=== PATIENT | female | born 1950 | race Caucasian/White ===

== ENCOUNTER 2023-02-04 14:44 | Outpatient (CLI) | payer MEDICARE, OTHER, SELFPAY ==
--- NOTE | 2023-02-04 15:00 | CRLHL7_ITS ---
For Patients: As a result of the Century Cures Act, medical imaging exams and procedure reports are released immediately into your electronic medical record. You may view this report before your referring provider. If you have questions, please contact your health care provider. INDICATION: Back pain, hardware failure. TECHNIQUE: Noncontrast CT of the lumbar spine with multiplanar reconstruction. COMPARISON: None available. FINDINGS: Operative changes of posterior fusion and decompression from T10 through the sacrum as well as anterior fusion at L5-S1 and L4-S1 interbody disc spacer placement. A fracture is noted in the right [place] at the L3 level (series 11, image 41 and series 5, image 41). 4 mm grade 1 anterolisthesis is noted at L4-L5. There is chronic appearing height loss of the L3 and L5 vertebral bodies and depression of the L1 superior endplate. The peripherally calcified fluid collection is noted within the laminectomy bed extending from T12-L5. Evaluation of the individual levels demonstrates: T12-L1 and L1-L2: No significant spinal canal or neural foraminal stenosis. L2-L3: Patent thecal sac and no significant left neural foraminal stenosis. Mild right neural foraminal narrowing from symmetric disc bulging and facet hypertrophy. L3-L4 and L4-5: Postsurgical changes. Patent thecal sac. No high-grade neural foraminal narrowing. L5-S1: Patient thecal sac and left neural foramen. Moderate right neural foraminal narrowing as sequela of endplate osteophytosis and facet hypertrophy. IMPRESSION: 1. Fracture in the right [place] at the L3 level (series 11, image 41). 2. Operative changes of posterior fusion from T10 through the sacrum, anterior fusion at L5-S1, and L4-S1 interbody disc spacer placement. 3. Age-indeterminate, likely chronic, depression of the L1 superior endplate and height loss of the L3 and L5 vertebral bodies. 4. Peripherally calcified fluid collection within the laminectomy bed extending from T12-L5. 5. At L5-S1, moderate right neural foraminal narrowing. Please note that all CT scans at this facility use dose modulation, iterative reconstruction, and/or weight-based dosing when appropriate to reduce radiation dose to as low as reasonably achievable. Dictated by Jakob Ordonez MD @ 02/05/2023 9:59:21 AM (Electronically Signed)
== END 2023-02-04 14:45 | disposition home or self-care (01) ==
LOC: CT 14:45
PROVIDERS: PCP Surgery; Visit Provider Physician Assistant
DX: M54.9 Dorsalgia, unspecified (principal); S32.039D Unspecified fracture of third lumbar vertebra, subsequent encounter for fracture with routine healing; M51.27 Other intervertebral disc displacement, lumbosacral region; M96.0 Pseudarthrosis after fusion or arthrodesis
CPT/HCPCS: 72131

== ENCOUNTER 2023-09-10 20:12 | Outpatient (CLI) | payer MEDICARE, OTHER, SELFPAY ==
--- OUTSIDE RECORDS SUMMARY | 2023-09-10 20:16 | XMS_ITS | Clinical Summary ---
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 IU/L 07/25/2023 9:21 PM CDT [facility] Blood BLOOD SPECIMEN / Unknown Venipuncture / Unknown 07/25/2023 2:23 PM CDT 07/25/2023 2:25 PM CDT Tana Sherman MD CHEMISTRY Performing Organization Address [facility]/ZIP Co de Phone Number [facility] [address] [place] [address], * (ABNORMAL) COMP METABOLIC PANEL (07/25/2023 2:23 PM CDT) SODIUM 144 136 - 145 mmol/L 07/25/2023 9:21 PM CDT [facility] POTASSIUM 4.9 3.5 - 5.1 mmol/L 07/25/2023 9:21 PM CDT [facility] CHLORIDE 105 98 - 107 mmol/L 07/25/2023 9:21 PM CDT [facility] CO2,TOTAL 29 22 - 29 mmol/L 07/25/2023 9:21 PM CDT [facility] ANION GAP 10 5 - 18 07/25/2023 9:21 PM CDT [facility] GLUCOSE 92 70 - 99 mg/dL 07/25/2023 9:21 PM CDT [facility] CALCIUM 9.9 8.8 - 10.2 mg/dL 07/25/2023 9:21 PM CDT [facility] BUN 12 8 - 23 mg/dL 07/25/2023 9:21 PM CDT [facility] CREATININE 0.79 0.50 - 0.90 mg/dL 07/25/2023 9:21 PM CDT [facility] BUN/CREAT RATIO 15 10 - 20 9:21 PM CDT [facility] eGFR 80(L) >90 mL/min/1.7 3m2 07/25/2023 9:21 PM CDT [facility] Comment:As of 2021, eG FR is calculated by the CKD-EPI creatinine equation without race adjustment. ??eGFR can be influenced by muscle mass, exercise, and diet. ??The reported eGFR is an estimation only and is only applicable if the renal function is stable. ALBUMIN 4.5 4.0 - 4.9 g/dL 07/25/2023 9:21 PM CDT [facility] PROTEIN,TOTAL 7.0 6.0 - 8.0 g/dL 07/25/2023 9:21 PM CDT [facility] BILIRUBIN,TOTAL 0.2 0.0 - 1.2 mg/dL 07/25/2023 9:21 PM CDT [facility] ALK PHOSPHATASE 135(H) 35 - 104 IU/L 07/25/2023 9:21 PM CDT [facility] ALT (SGPT) 16 10 - 35 IU/L 07/25/2023 9:21 PM CDT [facility] AST (SGOT) 19 10 - 35 IU/L 07/25/2023 9:21 PM CDT [facility] Blood BLOOD SPECIMEN / Unknown Venipuncture / Unknown 07/25/2023 2:23 PM CDT 07/25/2023 2:25 PM CDT Tana Sherman MD [facility] [address] [place] [address], * ECHO TTE COMPLETE WO CONTRAST (06/11/2023 3:08 PM NURSE ORTHOPAEDIC) AORTIC VALVE MEAN PG 31 mmHg EJECTION FRACTION 66 % LVEDD 4.3 cm EJECTION FRACTION 70 - 75% PEAK TR VELOCITY 2.6 m/s Anatomical Region Laterality Modality Ultrasound 06/11/2023 1:26 PM NURSE ORTHOPAEDIC Narrative 06/12/2023 8:30 AM NURSE ORTHOPAEDIC ECHOCARDIOGRAM Latia GARCIA ? Accession#: ?? [id number] : ?1950 73 years Study Date: ?? 06/11/2023 1:26:50 PM Gender: F ?BP: ? 150/82 mmHg Height: 165.00 cm ?BSA: ?2.09 m? ? ? Weight: 103.00 kg ?Tech: ? MTS ? Referring MD: TANA SHERMAN Site: ? [facility] Reading Location: MOBILE OP Patient Location: Outpatient. Procedure: 2D, Color Doppler and Spectral Doppler. Indication for study: Aortic valve stenosis, etiology of cardiac valve disease unspecified Cardiac Rhythm: Regular.Study quality: Fair. Imaging limitations: This study was subject to imaging limitations due to body habitus and a prominent lung artifact. Final Impressions: 1. Normal LV size, not well visualized wall thickness (mild to moderately increased), hyperdynamic global systolic function with an estimated EF of 70 - 75%. 2. The aortic valve is sclerotic and not well visualized, moderate stenosis and no regurgitation. 3. Grade 2 pattern of LV diastolic filling. 4. Mildly enlarged left atrium. 5. The mitral valve is normal, mild mitral regurgitation. Comparison Compared to prior exam report of 08/17/2021: - Aortic stenosis has increased. Chamber Sizes and Function Normal left ventricular size, not well visualized wall thickness, hyperdynamic global systolic function with an estimated EF of 70 - 75%. Left atrial size is mildly enlarged. Right ventricular cavity size is normal, global systolic RV function is normal. RV wall thickness is normal. The right atrium is normal. Right atrial volume index is 17 ml/m? ? ?. Right atrial area is 16 cm? ? ?. The pulmonary artery is of normal size and origin. The sinus of Valsalva is normal sized. The ascending aorta is normal sized. Valves, RV Pressures and Diastolic Function The aortic valve is sclerotic and not well visualized , moderate stenosis and no regurgitation. The mitral valve is normal in structure, mild mitral regurgitation. Spectral Doppler shows Grade 2 pattern of LV diastolic filling. The tricuspid valve is normal in structure. Tricuspid regurgitation is regurgitation is not evident. The tricuspid regurgitant velocity is 2.6 m/s, the estimated right ventricular systolic pressure is 27 mmHg plus right atrial pressure. The pulmonic valve is normal. No pulmonary regurgitation. Masses, Effusion, Shunts There is no pericardial effusion. The inferior vena cava is dilated, respiratory size variation less than 50%. No left to right shunting was detected by limited color flow Doppler interrogation of the interatrial septum. MEASUREMENTS AND CALCULATIONS 2-D Measurements and LV Function: LVID (d) 4.3 cm LV FS% (2D) ?? 35 % LVID (s) 2.8 cm LVOT diameter 2.0 cm IVS (d) ??1.3 cm HR ?62 bpm LVPW (d) 1.3 cm LA Vol index ??36 ml/m2 Ao Sinus 3.5 cm RA Vol index ??17 ml/m2 Asc Ao ?? 3.5 cm RA area ? 16 cm?RV Max 4C (d) 3.2 cm Diastology: Mitral ?Tissue Doppler E Peak 0.7 m/s ??e', Septum ? 0.04 m/s A Peak 1.2 m/s ??e', Lateral ?0.06 m/s E/A ?0.6 ?E/e' Average ?? 14.97 DT ? 381 msec Aortic Valve: Vmax ? 3.7 m/s ??BERENICE (V) ?? 1.15 cm? ? ? VTI ?0.86 m ?? BERENICE (I) ?? 1.07 cm? ? ? LVOT V max 1.3 m/s ??Max PG ?54 mmHg LVOT VTI ?? 0.29 m ?? Mean PG ?? 31 mmHg SV ? 92 ml ?Dim Index 0.34 SV index ?? 44 ml/m? ? ? CO ?5.7 l/min ?CI ?2.7 l/min/m? ? ? Mitral Valve: MVA ?2.0 cm? ? ? MV P 1/2 110 msec Tricuspid Valve and estimated PA pressures: TR Vmax 2.6 m/s TAPSE 2.2 cm TR maxG 27 mmHg . This study was interpreted by an [facility] accredited facility. ??Final ?? Procedure Note Landen Sanchez MD - 06/12/2023 ECHOCARDIOGRAM Latia GARCIA : 1950 73 years Study Date: 06/11/2023 1:26:50 PM Gender: F BP: 150/82 mmHg Height: 165.00 cm BSA: 2.09 m? ? ? Weight: 103.00 kg Tech: [facility] Referring MD: TANA SHERMAN Site: [facility] Reading Location: MOBILE OP Patient Location: Outpatient. Procedure: 2D, Color Doppler and Spectral Doppler. Indication for study: Aortic valve stenosis, etiology of cardiac valvedisease unspecified Cardiac Rhythm: Regular.Study quality: Fair. Imaging limitations: This study was subject to imaging limitations due tobody habitus and a prominent lung artifact. Final Impressions: 1. Normal LV size, not well visualized wall thickness (mild to moderatelyincreased), hyperdynamic global systolic function with an estimated EF of70 - 75%. 2. The aortic valve is sclerotic and not well visualized, moderatestenosis and no regurgitation. 3. Grade 2 pattern of LV diastolic filling. 4. Mildly enlarged left atrium. 5. The mitral valve is normal, mild mitral regurgitation. Comparison Compared to prior exam report of 08/17/2021: - Aortic stenosis has increased. Chamber Sizes and Function Normal left ventricular size, not well visualized wall thickness,hyperdynamic global systolic function with an estimated EF of 70 - 75%.Left atrial size is mildly enlarged. Right ventricular cavity size isnormal, global systolic RV function is normal. RV wall thickness isnormal. The right atrium is normal. Right atrial volume index is 17ml/m? ? ?. Right atrial area is 16 cm? ? ?. The pulmonary artery is of normalsize and origin. The sinus of Valsalva is normal sized. The ascendingaorta is normal sized. Valves, RV Pressures and Diastolic Function The aortic valve is sclerotic and not well visualized , moderate stenosisand no regurgitation. The mitral valve is normal in structure, mild mitralregurgitation. Spectral Doppler shows Grade 2 pattern of LV diastolicfilling. The tricuspid valve is normal in structure. Tricuspidregurgitation is regurgitation is not evident. The tricuspid regurgitantvelocity is 2.6 m/s, the estimated right ventricular systolic pressure is27 mmHg plus right atrial pressure. The pulmonic valve is normal. Nopulmonary regurgitation. Masses, Effusion, Shunts There is no pericardial effusion. The inferior vena cava is dilated,respiratory size variation less than 50%. No left to right shunting wasdetected by limited color flow Doppler interrogation of the interatrialseptum. MEASUREMENTS AND CALCULATIONS 2-D Measurements and LV Function: LVID (d) 4.3 cm LV FS% (2D) 35 % LVID (s) 2.8 cm LVOT diameter 2.0 cm IVS (d) 1.3 cm HR 62 bpm LVPW (d) 1.3 cm LA Vol index 36 ml/m2 Ao Sinus 3.5 cm RA Vol index 17 ml/m2 Asc Ao 3.5 cm RA area 16 cm? ? ? RV Max 4C (d) 3.2 cm Diastology: Mitral Tissue Doppler E Peak 0.7 m/s e', Septum 0.04 m/s A Peak 1.2 m/s e', Lateral 0.06 m/s E/A 0.6 E/e' Average 14.97 DT 381 msec Aortic Valve: Vmax 3.7 m/s BERENICE (V) 1.15 cm? ? ? VTI 0.86 m BERENICE (I) 1.07 cm? ? ? LVOT V max 1.3 m/s Max PG 54 mmHg LVOT VTI 0.29 m Mean PG 31 mmHg SV 92 ml Dim Index 0.34 SV index 44 ml/m? ? ? CO 5.7 l/min CI 2.7 l/min/m? ? ? Mitral Valve: MVA 2.0 cm? ? ? MV P 1/2 110 msec Tricuspid Valve and estimated PA pressures: TR Vmax 2.6 m/s TAPSE 2.2 cm TR maxG 27 mmHg . This study was interpreted by an [facility] accredited facility. Final Tana Sherman MD ECHO ORD * (ABNORMAL) XR DXA BONE DENSITY 1 SITE AXIAL AND 1 SITE PERIPHERAL (06/11/2023 2:24 PM NURSE ORTHOPAEDIC) Anatomical Region Laterality Modality LUMBAR SPINE Other Impressions 06/20/2023 9:15 AM CDT Osteopenia. RECOMMENDATIONS: The National Osteoporosis Foundation recommends pharmacologic treatment for patients with T-scores of -2.5 or less, patients with prior history of fragility fractures, or patients with 10-year probability of greater than 3% at hips or greater than 20% of suffering major osteoporotic fractures. Recommend continued optimization of calcium and vitamin D intake through dietary means and/or supplementation and regular exercise. Consider pharmacologic therapy for osteopenia with increased fracture risk. Follow-up bone density reading in 2 years if therapy initiated to assess therapeutic efficacy. Zaida Aiken PA-C [facility] 06/20/2023 Narrative 06/20/2023 9:15 AM CDT For Patients: Results are automatically released to your [employer] ([employer]) account once available, in compliance with federal regulations. This means that you may see your results before your provider has had a chance to review them. Please allow 2-3 business days for your provider to comment on the results. XR DXA Bone Mineral Density (BMD) EXAM LOCATION: [facility] [address] [facility] [address] PATIENT NAME: Latia Garcia DATE OF : 1950 EXAM DATE: 06/11/2023 REQUESTING PROVIDER: Tana Sherman MD GENDER AT : female HEIGHT: 5' 5 (03/18/2023) WEIGHT: ??226 lb (03/25/2023) MENOPAUSAL STATUS: Postmenopausal RACE/ETHNICITY: White RISK FACTORS: Height Loss (2 inches or more), Rheumatoid Arthritis, Smoking (prior), Steroid Medication (non-topical), and White Race CURRENT MEDICATION FOR BONE LOSS: NONE INDICATION: Follow-up of existing osteopenia and RHEUMATOID ARTHRITIS COMPARISON DATE(S): 2019 DXA scans are compared to prior studies for a patient only when the two (or more) studies were performed on the same scanner. It is not possible to compare data generated on one scanner to data from another because there are not standards in DXA equipment. This applies even if the two scanners are made by the same mc kay stitcher. PROCEDURE: Dual-energy x-ray absorptiometry performed with routine technique. Reporting is completed in the form of a T-score. The T-score represents the standard deviation from peak bone mass based on young healthy adult. A Z-score is used for diagnosis in premenopausal women, and for men under the age of 50. FINDINGS: RESULTS FEMUR Left femoral neck BMD: 0.857 g/cm2 T-Score: - 1.3 Z-Score: - 0.3 Change from prior in 2019: ??Decrease 1.9%. Right femoral neck BMD: 0.798 g/cm2 T-Score: - 1.7 Z-Score: - 0.8 Change from prior in 2020: ??Decrease 7.0%. Left hip BMD: 0.883 g/cm2 T-Score: - 1.0 Z-Score: - 0.3 Change from prior in 2020: ??Increase 0.7%. Right hip BMD: 0.831 g/cm2 T-Score: - 1.4 Z-Score: - 0.7 Change from prior in 2020: ??Decrease 4.2%. RESULT FOREARM Left Forearm distal radius BMD: 0.524 g/cm2 T-Score: - 2.5 Z-Score: - 0.6 Change from prior in 2020: ??Increase 0.8%. WHO criteria: Normal: T-score at or above -1 SD Osteopenia: T-score between -1.1 and -2.4 SD Osteoporosis: T-score at or below -2.5 SD FRAX RISK CALCULATION (USED FOR OSTEOPENIA ONLY): 10-year probability of major osteoporotic fracture: 19.8%. 10-year probability of hip fracture: 4.2%. Tana Sherman MD DEXA * XR MAMMO CHARI BILAT SCREEN (01/07/2023 4:12 PM CDT) Anatomical Region Laterality Modality BREASTS, Breast Left, Breast Right Bilateral Mammography Impressions 01/08/2023 2:38 PM CDT ??There is no radiographic evidence for malignancy. ??Recommend annual mammograms. MAMMOGRAM ASSESSMENT: ??ACR 1 Negative PATIENTS: You will also receive a letter with your examination results in an easy to read format. ??If you have questions about your results, please contact your referring provider. Narrative 01/08/2023 2:38 PM CDT For Patients: As a result of the Century Cures Act, medical imaging exams and procedure reports are released immediately into your electronic medical record. You may view this report before your referring provider. If you have questions, please contact your health care provider. XR MAMMO CHARI BILAT SCREEN [[id number]] CLINICAL HISTORY: ??This is an asymptomatic 72 y.o. patient. INDICATION FOR EXAM: Mammogram Screening. TECHNIQUE: CC & MLO views were obtained. ??This study was evaluated with the assistance of Computer-Aided Detection. Breast Tomosynthesis was used in interpretation. COMPARISON FILM: Yes 08/17/21 [facility] 02/11/20 [facility] FINDINGS: ??The breasts are heterogeneously dense, which may obscure small masses. There are no dominant masses, suspicious micro calcifications or areas of architectural distortion. Tana Sherman MD MAMMO * LIPID PANEL (01/02/2023 12:52 PM CDT) CHOLESTEROL,TOTAL 165 100 - 199 mg/dL 01/02/2023 8:36 PM CDT [facility] Comment: Cholesterol, Total Reference Ranges Desirable <200 mg/dL Borderline 200-239 mg/dL High >=240 mg/dL TRIGLYCERIDES 71 <150 mg/dL 01/02/2023 8:36 PM CDT [facility] HDL CHOLESTEROL 91 >40 mg/dL 8:36 PM CDT [facility] NON-HDL CHOLESTEROL 74 <145 mg/dl 01/02/2023 8:36 PM CDT [facility] CHOL/HDL RATIO 1.81 <4.50 01/02/2023 8:36 PM CDT [facility] LDL CHOLESTEROL 60 <=130 mg/dL 01/02/2023 8:36 PM CDT [facility] VLDL CHOLESTEROL 14 <=30 mg/dL 01/02/2023 8:36 PM CDT [facility] PROVIDER ORDERED STATUS RANDOM 01/02/2023 8:36 PM CDT [facility] Blood BLOOD SPECIMEN / Unknown Venipuncture / Unknown 01/02/2023 12:52 PM CDT 01/02/2023 12:52 PM CDT Tana Sherman MD CHEMISTRY [facility] [address] [place] [address], * SCAN-COLONOSCOPY (12/11/2021 3:00 PM CDT) Narrative Procedure Note Ran Lee MD - 12/11/2021 1:56 PM CDT [facility] [address], [address], [place] [address] Patient Name: Julia Garcia Gender: Female Exam Date: 12/11/2021 Visit Number: [id number] Age: 71 Years Date of : 1950 Attending MD: Ran Lee MD Medical Record#: [id number] Procedure: Colonoscopy Indications: Previous adenomatous polyp(s) Referring MD: Tana Sherman MD Primary MD: Tana Sherman MD Medications: Intra Procedure Medications: Patient received monitored anesthesia care. Complications: No immediate complications Procedure: An examination of the heart and lungs was performed and found to be withinacceptable limits. . The patient was therefore deemed a reasonablecandidate for endoscopy and sedation. The risks and benefits of the procedure were explained to the patient.After obtaining informed consent, the patient received monitoredanesthesia care and I passed the scope without difficulty via the rectum to the cecum. The appendiceal orificeand ic valve were identified. The scope was retroflexed during theexamination The quality of the prep was good (Miralax/Gatorade DoublePrep). This was a complete examination throughout the entire colon. Findings: Polyp location: transverse colon. Quantity: 1. Size: 4 mm. Polyp shape:sessile. Maneuver: polypectomy was performed with a cold snare. Removal: complete. Retrieval: complete. Bleeding: none. Polyp location: sigmoid. Quantity: 1. Size: 5 mm. Polyp shape: sessile. Maneuver: polypectomy was performed with a cold snare . Removal: complete. Retrieval: complete. Bleeding: none. Diverticulosis. Location: - sigmoid. Quantity: few. Hemorrhoids. Internal hemorrhoids without bleeding. Perianal skin tag noted on external exam. Impression: Colorectal polyps Diverticulosis of colon Internal hemorrhoids Preliminary Plan: The patient and their physician will receive a copy of the pathologyreport as well as pathology-based recommendations for future screening orsurveillance. Pathology Results: A: COLON, TRANSVERSE, POLYP: 1. Tubular adenoma 2. Negative for high grade dysplasia 3. Per the colonoscopy report: a. Polyp size: 4 mm b. Resection: Complete c. Retrieval: Complete B: COLON, SIGMOID, POLYP: 1. Hyperplastic polyp MICROSCOPIC A: Performed B: Performed Electronically signed by: Bj Leigh [place] [address] Orders Instruction(s)/Education: Instruction/Education Timeframe Assessment Colon Cancer Prevention K63.5 Colon Polyps K63.5 Diverticulosis/Diverticulitis K63.5 Hemorrhoids (Internal) K63.5 High Fiber Diet K63.5 Final Plan: Repeat colonoscopy in 7 years. We will attempt to contact you at appropriate intervals via U.S. mail. Wemay not be able to find you or contact you at that time, therefore youshould know that the responsibility for following our recommendation restswith you. If you don't hear from us at the time your procedure is due,please contact our office to schedule an appointment. If your contactinformation should change, please contact our office so that we can updateyour record. _Electronically signed by: Ranulfo Mesa MD 12/11/2021 cc: Tana Sherman MD cc: Tana Sherman MD Ran Lee MD OTHER * ANTI HCV [[id number]] (01/18/2020 4:04 PM CDT) HEPATITIS C ANTIBODY Non-React jarrett Non-React jarrett 01/19/2020 3:18 PM CDT [facility] Comment:Antibodies to HCV no t detected; does not exclude the possibility of exposure to HCV. Blood BLOOD SPECIMEN / Unknown Butterfly / Unknown 01/18/2020 4:04 PM CDT 01/18/2020 4:04 PM CDT Tana Sherman MD SEND OUTS [facility] [address] [place] [address], [place] from Last 3 Months or Most Recently Relevant to Health Maintenance Advance Directives Documents on File Type Date Recorded Patient Emergency Communications Dispatcher Expl anation Healthcare Directive 08/11/2016 12:00 AM * Full Code (Latest Code Status on File) Date Activated Date Inactivated Comments 03/18/2023 3:16 PM 03/20/2023 6:06 PM Question Answer Comments Code Status Discussion: Reviewed Preferences * Full Code Date Activated Date Inactivated Comments 08/13/2016 4:08 PM 08/19/2016 4:57 PM * Full Code Date Activated Date Inactivated Comments 08/13/2016 5:27 AM 08/13/2016 4:08 PM Question Answer Comments Code Status Discussion: Discussed Care Teams Customer Support Consultant Relationship Specialty Start Date End Date Tana Sherman MD [address] [place] [address] PCP - General Family Practice 08/04/13 Shannan Guadalupe MD [address] [place] [address] Rheumatology Rheumatology 11/27/17
--- OUTSIDE RECORDS SUMMARY | 2023-09-10 20:16 | XMS_ITS | Continuity of Care Document ---
Author Name [facility] Organization [facility] Care Team Providers Care Dog Catcher Name Role Phone [facility] Unavailable Unavailable Problems Combined list of problems from Department of Defense and Veterans Affairs facilities. It does not include entries that were removed or entered in error. 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 DoD Aftercare Orthopedic Inactive Condition DoD visit for: administrative purpose Inactive Condition DoD visit for: preoperative orthopedic exam Inactive Condition DoD decrease in appetite Active Condition D oD abnormal weight loss Active Condition D oD pain on swallowing Active Condition DoD difficulty walking Active Condition DoD nausea Inactive Condition DoD Dietary Counseling Pertaining To Specific Condition Inactive Condition DoD diastolic dysfunction Active Condition DoD Other Physical Therapy Inactive Condition DoD difficulty in walking Inactive Condition DoD spinal stenosis lumbar with neurogenic claudication Active Condition DoD scoliosis Active Condition DoD visit for: preoperative exam Inactive Condition 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 DoD Patient Education Inactive Condition DoD breast fibrocystic disease Active Condition DoD Cervical Pap Smear Inactive Condition Do D bacterial vaginosis Inactive Condition D oD chest pain made worse by breathing Inactive Condition DoD lumbago Active Condition DoD menopause has occurred Active Condition DoD visit for: screening exam osteoporosis Inactive Condition DoD Aftercare Following Surgery Of Musculoskeletal System Inactive Condition DoD CT Lung Infiltrate Inactive Condition Do D visit for: screening exam malignant neoplasm breast Inactive Condition DoD visit for: screening exam for malignant neoplasm cervix Inactive Condition DoD visit for: screening exam lipoid disorders Inactive Condition DoD visit for: screening exam diabetes mellitus Inactive Condition DoD visit for: screening exam thyroid disorders Inactive Condition DoD difficulty breathing (dyspnea) Inactive Condition DoD visit for: postsurgical exam Inactive Condition DoD nicotine dependence Inactive Condition D oD bronchopneumonia Inactive Condition DoD community-acquired pneumonia Inactive Condition DoD visit for: issue repeat prescription Inactive Condition DoD ovarian cyst Active Condition DoD visit for: issue repeat prescription for medication Inactive Condition DoD depression Active Condition DoD insomnia Active Condition DoD fibromyalgia Active Condition DoD intervertebral disc degeneration - lumbar Active Condition DoD adrenal neoplasm benign cortical adenoma incidental Inactive Condition DoD post pneumonia Inactive Condition DoD adrenal neoplasm Active Condition DoD hemorrhoids Inactive Condition DoD perimenopause Inactive Condition DoD gastritis Inactive Condition DoD dermatochalasis Inactive Condition DoD chronic pain syndrome Active Condition DoD lumbar spondylosis Active Condition DoD hemorrhoids internal Active Condition D oD breast pain Active Condition DoD backache Inactive Condition DoD rheumatoid arthritis Active Condition D oD tobacco use Inactive Condition DoD myalgia and myositis Active Condition D oD asthma severe persistent Active Condition DoD pneumonia Inactive Condition DoD recent weight gain (___ lbs) [reported] Inactive Condition DoD constipation Inactive Condition DoD appetite lost (anorexia) Inactive Condition DoD Patient Education Dietary Inactive Condition DoD seborrheic keratosis Inactive Condition left labia and right thigh DoD adverse effect of drug therapy Inactive Condition DoD dysplastic nevus Inactive Condition DoD asthma Inactive Condition DoD Mammogram Screening Inactive Condition D oD Pelvic Exam (Internal) Inactive Condition DoD bronchitis Inactive Condition CONTINUE INHALERS. WILL TREAT EMPIRICALLY WITH LEVAQUIN GIVEN HER COMPLICATED PULMONARY HISTORY QUESTIONABLE COPD. RTC IF NO BETTER IN 48HOURS. DoD hypertension systemic Inactive Condition DoD Patient Counseling: Inactive Condition D oD essential hypertension Active Condition pt. amenable to restarting altace and giiving it a longer trial. she tolerated this med the best. she does not want to start any other bp medication. will follow up in one month. sooner if any se or problems. DoD Imaging Studies Nonspecific Abnormal Findings Breast Inactive Condition DoD visit for: screening malignant neoplasm colon Inactive Condition DoD routine gynecological exam with cervical pap smear Inactive Condition DoD palpitations Inactive Condition DoD Medications Combined list of outpatient medications from Department of Defense and Veterans Affairs facilities.Medications provided include 1) outpatient medications from the last 15 months, and 2) patient-reported medications. Medication Details Route Status Patient Instructions Prescription Expires Prescription Number Last Dispense Date Ordering Provider Order Date Order Qty Source AMLODIPINE BESYLATE (AMLODIPINE BESYLATE), 5 MG, TABLET, ORAL, EXELAN PHARMACE, 1000 ea. BOTTLE Active [id number] 2023 90 Pharmac y Data Transac tion Service Facilit y AMLODIPINE BESYLATE (AMLODIPINE BESYLATE), 5 MG, TABLET, ORAL, EXELAN PHARMACE, 1000 ea. BOTTLE Active [id number] 4 2023 90 Pharmac y Data Transac tion Service Facilit y ATORVASTATI N CALCIUM (ATORVASTAT IN CALCIUM), 20 MG, TABLET, ORAL, ID.me ZOE, 1000 ea. BOTTLE Active [id number] 3 2022 90 Pharmac y Data Transac tion Service Facilit y ATORVASTATI N CALCIUM (ATORVASTAT IN CALCIUM), 20 MG, TABLET, ORAL, APOTEX ZOE, 1000 ea. BOTTLE Active [id number] 2023 90 Pharmac y Data Transac tion Service Facilit y ATORVASTATI N CALCIUM (atorvastat in calcium), 20 MG, TABLET, ORAL, AMANDA PHARMACEU, 500 ea. BOTTLE Active [id number] 2023 90 Pharmac y Data Transac tion Service Facilit y CARVEDILOL (carvedilol ), 3.125 MG, TABLET, ORAL, [employer] 500 ea. BOTTLE Active [id number] 2023 180 Pharmac y Data Transac tion Service Facilit y CARVEDILOL (carvedilol ), 3.125 MG, TABLET, ORAL, [employer] 500 ea. BOTTLE Active [id number] 4 2023 180 Pharmac y Data Transac tion Service Facilit y ESCITALOPRA M OXALATE (escitalopr am oxalate), 20 MG, TABLET, ORAL, [facility], 1000 ea. BOTTLE Active [id number] 2023 90 Pharmac y Data Transac tion Service Facilit y ESCITALOPRA M OXALATE (ESCITALOPR AM OXALATE), 20 MG, TABLET, ORAL, [facility] PHARM[facility], 1000 ea. BOTTLE Active [id number] 3 2022 90 Pharmac y Data Transac tion Service Facilit y FOLIC ACID (folic acid), 1 MG, TABLET, ORAL, [employer], 1800 ea. BOTTLE Active [id number] 2022 90 Pharmac y Data Transac tion Service Facilit y FOLIC ACID (folic acid), 1 MG, TABLET, ORAL, [employer], 1800 ea. BOTTLE Active [id number] 4 2023 90 Pharmac y Data Transac tion Service Facilit y FOLIC ACID (folic acid), 1 MG, TABLET, ORAL, [employer], 1800 ea. BOTTLE Active [id number] 4 2023 90 Pharmac y Data Transac tion Service Facilit y METHOTREXAT E (METHOTREXA TE SODIUM), 25MG/ML, VIAL, INJECTION, RONNIE PHARMA IN, 2 ml VIAL Cancele d [id number] : 2023 0 Pharmac y Data Transac tion Service Facilit y METHOTREXAT E (METHOTREXA TE SODIUM), 25MG/ML, VIAL, INJECTION, RONNIE PHARMA IN, 2 ml VIAL Active [id number] 4 2023 12 Pharmac y Data Transac tion Service Facilit y MODAFINIL (MODAFINIL) , 200 MG, TABLET, ORAL, APOTEX ZOE, 30 ea. BOTTLE Active [id number] 4 2023 180 Pharmac y Data Transac tion Service Facilit y MONTELUKAST SODIUM (montelukas t sodium), 10 MG, TABLET, ORAL, XLCARE PHARMACE, 90 ea. BOTTLE Active [id number] 2022 90 Pharmac y Data Transac tion Service Facilit y MONTELUKAST SODIUM (montelukas t sodium), 10 MG, TABLET, ORAL, XLCARE PHARMACE, 90 ea. BOTTLE Active [id number] 4 2023 90 Pharmac y Data Transac tion Service Facilit y PREDNISONE (prednisone ), 5 MG, TABLET, ORAL, AVKARE, 1000 ea. BOTTLE Active [id number] 2023 50 Pharmac y Data Transac tion Service Facilit y TELMISARTAN (telmisarta n), 80 MG, TABLET, ORAL, AVKARE, 30 ea. BOTTLE Cancele d [id number] : 2023 0 Pharmac y Data Transac tion Service Facilit y TELMISARTAN (telmisarta n), 80 MG, TABLET, ORAL, AVKARE, 30 ea. BOTTLE Active [id number] 2023 90 Pharmac y Data Transac tion Service Facilit y TELMISARTAN (telmisarta n), 80 MG, TABLET, ORAL, AVKARE, 30 ea. BOTTLE Active [id number] 2023 90 Pharmac y Data Transac tion Service Facilit y WIXELA INHUB (fluticason e propionate/ salmeterol xinafoate), 500-50 MCG, BLST W/DEV, INHALATION, MYLAN, 60 ea. BLIST PACK Cancele d [id number] : 2023 0 Pharmac y Data Transac tion Service Facilit y WIXELA INHUB (fluticason e propionate/ salmeterol xinafoate), 500-50 MCG, BLST W/DEV, INHALATION, MYLAN, 60 ea. BLIST PACK Active [id number] 2023 180 Pharmac y Data Transac tion Service Facilit y Allergies, Adverse Reactions, Alerts Combined list of allergies from Department of Defense and Veterans Affairs facilities. It does not include entries that were removed or entered in error. Substance Category Reaction Severity Reaction type Status Date Reported Comments Source ACTIQ (FENTANYL CITRATE) Drug allergy (disorder) Unknown active 2 [facility] FENTANYL BASE (FENTANYL) Drug allergy (disorder) Unknown active 9 [facility] Immunizations Combined list of available immunizations from the Department of Defense and Veterans Affairs facilities. Immunization Series Date Given Administered By Site Reaction Lot Number CVX Code Drug Cosmetics Demonstrator Status Comments Source trivalent poliovirus vaccine, live, oral 1 1972 Unknown, Provider 02 () complet ed trivalent polioviru s vaccine, live, oral DoD measles, mumps and rubella virus vaccine 1 1952 Unknown, Provider 03 () complet ed measles, mumps and rubella virus vaccine DoD Encounters Combined list of: 1) Encounters from Department of Veterans Affairs facilities going back up to thelast 18 months. 2) Encounters from the Department of Defense facilities going back up to 280 months. Location Location Details Encounter Type Encounter Number Reason For Visit Attending Provider ADM Date DC Date Status Disposition Source [facility] DIRECT TO [facility] FROM OTHER THAN ER OR [facility] [id number] DELMAR MAXWELL 07/07 DISCHARGED HOME [facility] ADMISSION RESULTING FROM [facility], DIRECT TO [facility] [id number] DIONNA DAWN Bianka 08/10 DISCHARGED HOME [facility] OUTPATIENT [id number] JACI Rolon 12/25 Released w/o Limitations [facility]) OUTPATIENT [id number] annual exam JULIANA, NICHOLE E 05/25 Released w/o Limitations [facility]) [facility]) OUTPATIENT [id number] Cecili ROBERTA Vogel 06/21 Released w/o Limitations [facility] ) [facility]) TELE CONSULT [id number] f/u mammo JULIANA, NICHOLE E 08/01 [facility]) [facility]) TELE CONSULT [id number] notific ation JULIANA, NICHOLE E 08/15 [facility]) [facility]) TELE CONSULT [id number] Having nausea, vomitin g, chest pain, shortne ss of breath. VINICIO SPAIN 08/20 [facility]) [facility]) OUTPATIENT [id number] 54 yo female needs f/u for high blood pressur e med VINICIO SPAIN 08/29 Released w/o Limitations [facility]) [facility]) TELE CONSULT [id number] Pt wants to discuss treatme nt plan for BP issues DEMIAN CORONA 11/13 [facility]) [facility]) OUTPATIENT [id number] F/U er/high bp VINICIO SPAIN A 11/19 Released w/o Limitations [facility]) [facility]) OUTPATIENT [id number] ANNUAL PAP AND BREAST EXAM MEAGHAN VELEZ 12/13 Released w/o Limitations [facility]) [facility] OUTPATIENT [id number] KIRSTY RAMIRES 01/16 Released w/o Limitations [facility] ER, [facility] TO [facility] [id number] KELI PELAEZ 07/15 LEFT AGAINST MEDICAL ADVICE [facility]) TELE CONSULT [id number] [facility] TAMIA Dyson 07/16 Referred for Appointment [facility](Int ernal Medicin e [facility]) [facility] [id number] HUMPHREY TURNER 07/22 DISCHARGED HOME [facility]riti on [facility]) OUTPATIENT [id number] ROSLYN ORTEGA 07/23 Released w/o Limitations [facility](Nut rition [facility]) [facility]) OUTPATIENT [id number] F/U ON A PNEUMON IA MEAGHAN VELEZ 07/28 Released w/o Limitations [facility]) [facility]) TELE CONSULT [id number] consult JONELLE CINTRON 08/02 [facility]) [facility] OUTPATIENT [id number] PAP/maira ast exam. MEAGHAN VELEZ 08/10 Released w/o Limitations [facility]) [facility]) OUTPATIENT [id number] Mammogr am Screeni ng on August 12 CRISTOPHER VILLAFANA 08/24 Released w/o Limitations [facility] ) [facility](Neurosu rgery [place]) OUTPATIENT [id number] backach e-f/u after MRI DIONNA DAWN 08/27 Released with Work/Duty Limitations [facility]) [facility](Plastic Surgery [facility]) OUTPATIENT [id number] GAYE Carlton UPPER EYELID HERON HEREDIA 11/26 Released w/o Limitations [facility](Emma stic Surgery [facility]) [facility]) OUTPATIENT [id number] meds renewal --- MEAGHAN VELEZ 12/21 Released w/o Limitations [facility]) [facility]) TELE CONSULT [id number] referra JONELLE Lazar Y 08/11 [facility]) [facility]) TELE CONSULT [id number] referJONELLE Lim Y 11/14 [facility]) [facility]) OUTPATIENT [id number] NAUSEA AND FEVER MEAGHAN VELEZ 11/16 Released w/o Limitations [facility]) [facility]) OUTPATIENT [id number] refill asthma meds MEAGHAN VELEZ 11/30 Released w/o Limitations [facility]) [facility]) TELE CONSULT [id number] rad results JONELLE CINTRON Y 12/07 [facility]) [facility]) TELE CONSULT [id number] lab results JONELLE CINTRON Y 12/14 [facility](Endocri nology [facility]) OUTPATIENT [id number] adrenal adenoma uncontr olled htn BRENDA TAMAYO 12/15 Released w/o Limitations [facility](End ocrinol ogy [facility]) [facility](Pulmona ry [facility]) OUTPATIENT [id number] f/u pt of ROB Crawford 12/16 Released w/o Limitations [facility](Pul monary [facility]) [facility]) TELE CONSULT [id number] shortne ss of breath JONELLE CINTRON Y 12/28 [facility]) [facility](Pulmona ry [facility]) TELE CONSULT [id number] pneuomi ROB Sanders 01/04 [facility](Pul monary [facility]) [facility](Pulmona ry [facility]) OUTPATIENT [id number] f/u ROB ALFORD 01/13 Released w/o Limitations [facility](Pul monary [facility]) [facility](Endocri nology [facility]) TELE CONSULT [id number] LABS BRENDA TAMAYO 01/13 [facility](End ocrinol ogy [facility]) [facility]) TELE CONSULT [id number] rad results JONELLE CINTRON Y 01/18 [facility]) [facility](Pulmona ry [facility]) TELE CONSULT [id number] X-Ray CD ROB ALFORD 01/24 [facility](Pul monary [facility]) [facility](Endocri nology [facility]) OUTPATIENT [id number] Pt inpers F/u Jan BRENDA TAMAYO 01/24 Released w/o Limitations [facility](End ocrinol ogy [facility]) [facility](Endocri nology [facility]) TELE CONSULT [id number] test results BRENDA TAMAYO 02/22 [facility](End ocrinol ogy [facility]) [facility](Endocri nology [facility]) TELE CONSULT [id number] lab results BRENDA TAMAYO 02/27 [facility](End ocrinol ogy [facility]) [facility](Endocri nology [facility]) TELE CONSULT [id number] BRENDA TAMAYO 03/08 [facility](End ocrinol ogy [facility]) [facility] [employer]) TELE CONSULT [id number] REFERAL BA JANSEN 03/15 [facility] [employer]) [facility] [employer]) OUTPATIENT [id number] initial appt ANTONIO BRONSON 03/20 Released w/o Limitations [facility] [employer]) [facility](Endocri nology [facility]) TELE CONSULT [id number] lab resutls BRENDA TAMAYO 03/28 [facility](End ocrinol ogy [facility]) [facility] [employer]) OUTPATIENT [id number] f/u PEDRO CRESPO 04/06 Released w/o Limitations [facility] [employer]) [facility](Pulmona ry [facility]) OUTPATIENT [id number] PFT wally dlco ROB ALFORD 04/10 Released w/o Limitations [facility](Pul monary [facility]) [facility] [employer]) OUTPATIENT [id number] f/u PEDRO CRESPO 05/02 Released w/o Limitations [facility] [employer]) [facility] [employer]) OUTPATIENT [id number] F/U ON FIBROMY KENAN PEDRO CRESPO 05/31 Released w/o Limitations [facility] [employer]) [facility] [employer]) TELE CONSULT [id number] Referra US cas & Refills PEDRO CRESPO 07/05 [facility] [employer]) [facility] [employer]) TELE CONSULT [id number] [facility] refusal SUHAS GALVIN 08/15 [facility] [employer]) [facility](Endocri nology [facility]) TELE CONSULT [id number] ct results BRENDA TAMAYO 08/25 [facility](End ocrinol ogy [facility]) [facility] [employer]) TELE CONSULT [id number] med refill SUHAS GALVIN 08/31 [facility] [employer]) [facility] [employer]) TELE CONSULT [id number] appt. SUHAS GALVIN 09/05 [facility] [employer]) [facility] [employer]) OUTPATIENT [id number] f/u depress RAFAEL Mcbride 09/12 Released w/o Limitations [facility] [employer]) [facility] [employer]) TELE CONSULT [id number] wants xray results from yesturd ay [id number] pw RAFAEL GASCA 09/13 [facility] [employer]) [facility] [employer]) TELE CONSULT [id number] CXR, labs RAFAEL GASCA 09/14 [facility] [employer]) [facility] [employer]) TELE CONSULT [id number] meds/ra d/appt SUHAS GALVIN 10/02 [facility] [employer]) [facility](Pulmona ry [facility]) OUTPATIENT [id number] Chronic asthma MARIO GRIMM 10/13 Released w/o Limitations [facility](Pul monary [facility]) [facility](Endocri nology [facility]) TELE CONSULT [id number] BRENDA TAMAYO 11/08 [facility](End ocrinol ogy [facility]) [facility] [employer]) TELE CONSULT [id number] referra BA Murdock 12/25 [facility] [employer]) [facility] [employer]) OUTPATIENT [id number] initial appt RAFAEL GASCA 01/02 Released w/o Limitations [facility] [employer]) [facility](Pulmona ry [facility]) TELE CONSULT [id number] medicat ion refill MARIO GRIMM 01/22 [facility](Pul monary [facility]) [facility] [employer]) OUTPATIENT [id number] f/u blood pressur e RAFAEL GASCA 01/30 Released w/o Limitations [facility] [employer]) [facility]) TELE CONSULT [id number] CXR, RAFAEL Baker 01/31 [facility] [employer]) [facility]) TELE CONSULT [id number] CXR RAFAEL GASCA 02/23 [facility] [employer]) [facility]) TELE CONSULT [id number] RAFAEL Baker 03/05 [facility] [employer]) [facility](Neurosu [facility]gery [facility]) OUTPATIENT [id number] CHRONIC PAIN SYNDROM E; 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 Monique pt. Please call to discuss surg date. KIMBERLI TRAORE 09/10 [facility]([place]) [facility](Neurosu rgery [facility]) TELE CONSULT [id number] Pt desires to resched ule surgery appt. due to asthma attack prefera ashok [id number] TAYLER REGULO L 09/24 [facility]([place]) [facility](Neurosu [facility]gery [facility]) TELE CONSULT [id number] PT. wants to speak to you about resched uling her surgery . KIMBERLI TRAORE 10/22 [facility]([place] [facility]) [facility](Neurosu rgery [facility]) TELE CONSULT [id number] Preop appt. KIMBERLI TRAORE 11/07 [facility]([place] [facility] (Neurosu [facility]gery [facility]) OUTPATIENT [id number] Pre-op for Dec surgery DIONNA DAWN Bianka 12/18 Released with Work/Duty Limitations [facility]([place] [facility]) [facility] [place] [facility](Neurosu [facility]gery [facility]) TELE CONSULT [id number] Dr. Dasia delcid SCS placeme nt 12/26. Wound care/pa in mgt questio ns. DAVID TRAOREJG Suresh 12/27 [facility]([place] [facility] [place] (Neurosu [facility]gery [facility]) OUTPATIENT [id number] Postop wound check DIONNA DAWN 01/08 Released with Work/Duty Limitations [facility]([place] [facility]) [facility] [place] (Pulmona ry [facility]) OUTPATIENT [id number] f/u MARIO GRIMM 01/11 Released w/o Limitations [facility](Pul monary [facility]) [facility] [place] (Neurosu [facility]gery [facility]) TELE CONSULT [id number] Dr.P. delcid Thoraci c SNS 12/26, c/o stabbin g pain on left side of spine x 5 days. DAVID TRAOREJG Suresh 01/22 [facility] [place] (Pulmona ry [facility]) TELE CONSULT [id number] please call VANESSA CRESPO 01/24 [facility]) [facility] [facility] [place] (Neurosu rgery [facility]) TELE CONSULT [id number] missed appt. DAVID TRAOREJG Suresh 01/25 [facility]([place] rosurge ry [facility]CP) [facility] [place]Endocri nology [facility]) OUTPATIENT [id number] BRENDA Fenton 02/04 Released w/o Limitations [facility](End ocrinol ogy NMCP) [facility] [employer]) OUTPATIENT [id number] F/U ER LAB RESULTS FOR PNEUMON IA LAST SEEN 01 25 11 YELENA FONTANEZ E 02/05 Released w/o Limitations [facility] [employer]) [facility](Endocri nology NMCP) TELE CONSULT [id number] questio ns about nelson TAMAYO BRENDA Sully 02/18 [facility](End ocrinol ogy NMCP) [facility](Pulmona ry NMCP) OUTPATIENT [id number] full study post bronch SIRISHA MARIO M 02/18 Released w/o Limitations [facility](Pul monary NMCP) [facility](Pulmona ry NMCP) OUTPATIENT [id number] f/u MARIO GRIMM 02/18 Released w/o Limitations [facility](Pul monary NMCP) [facility](Neurosu rgery NMCP) OUTPATIENT [id number] f/u appoint ment DIONNA DAWN 04/25 Released w/o Limitations [facility]([place] rosurge ry [facility]CP) [facility](Endocri nology NMCP) OUTPATIENT [id number] CHRONIC PAIN SYNDROM E STEPHANE BIGGS 05/07 Released w/o Limitations [facility](End ocrinol ogy NMCP) [facility](Neurosu rgery NMCP) OUTPATIENT [id number] pt/2nd opinion (R/S from 06/04) CELESTINA DOWLING 06/03 Released w/o Limitations [facility]([place] rosurge ry [facility]) [facility] [employer]) OUTPATIENT [id number] F\U FOR CHEST PAIN DATE LAST SEEN YELENA FONTANEZ E 06/12 Released w/o Limitations [facility] [employer]) [facility] [employer]) TELE CONSULT [id number] Notes Entered by: RALPH CHAVEZ 23 Jul 2011 1007 ------- ------- ------- ------- -- hilario cardozo CATHY RADFORDTE 07/22 [facility] [employer]) [facility](Neurosu rgery NMCP) TELE CONSULT [id number] Notes Entered by: Latia GALVIN 05 Aug 2011 1224 ------- ------- ------- ------- -- PT wants to sched e surgery REGULO LESTER 08/04 [facility]([place] rosurge ry [place]) [facility](Neurosu rgery NMCP) TELE CONSULT [id number] Notes Entered by: BRITTANY MORALES 23 Aug 2011 1151 ------- ------- ------- ------- -- Dr. Dowling pt stated she called last Fri left mess w/ koffi SLAUGHTERES REGULO Kieran 08/22 [facility]([place] rosurge ry [facility]) [facility] [employer]) OUTPATIENT [id number] visit for: screeni ng exam for maligna nt neoplas m cervix RAJNI BERGERON 09/02 Released w/o Limitations [facility] [employer]) [facility](Neurosu rgery [facility]CP) OUTPATIENT [id number] F/U CELESTINA DOWLING 09/03 Released w/o Limitations [facility]([place] rosurge ry NMCP) [facility]([place] [employer]) OUTPATIENT [id number] vular biopsy RAJNI BERGERON 09/05 Released w/o Limitations [facility] [employer]) [facility]([place] [facility]) TELE CONSULT [id number] Notes Entered by: RAJNI DARBY 12 Sep 2011 1609 ------- ------- ------- ------- -- Called with vulvar bx results -benign . Area healing well. RAJNI Patterson 09/11 [facility] [employer]) [facility](Ortho Spine NMCP) OUTPATIENT [id number] LUMBAR SPONDYL OSIS BURTON SANABRIA 09/18 Released w/o Limitations [facility](Ort ho Spine NMCP) [facility]([place] [employer]) TELE CONSULT [id number] Notes Entered by: Kerwin PATEL 27 Sep 2011 0825 ------- ------- ------- ------- -- Pap results ROSLYN PATEL 09/26 [facility] [employer]) [facility] Internal Med NMCP) OUTPATIENT [id number] Myrtle jones ce for spine surgery PEDRO CURRY 11/24 Released w/o Limitations [facility] Interna l Med NMCP) [facility](Ortho Spine NMCP) TELE CONSULT [id number] Notes Entered by: NIEVES PARTIDA 25 Nov 2011 1123 ------- ------- ------- ------- -- Initial contact NIEVES PARTIDA 11/24 [facility](Ort ho Spine NMCP) [facility](Ortho Spine NMCP) OUTPATIENT [id number] PRE-OP/ DOS-04S EP/OR4 BURTON SANABRIA 12/03 Released w/o Limitations [facility](Ort ho Spine NMCP) [facility] ADMISSION RESULTING FROM [facility], DIRECT TO [facility] [id number] BURTON SANABRIA 12/09 DISCHARGED TO [facility](Nutriti on NMCP) INPATIENT [id number] Notes Entered by: NEHAL SCHAFFER 11 Dec 2011 1434 ------- ------- ------- ------- -- 3D - Scolios is/Spin al Fusion/ Nausea CRISTELA GRAYSON 12/10 Inpatient- Still a Patient [facility](Nut [facility]ition [facility]) [facility](Cardiol ogy NMCP) INPATIENT [id number] Notes Entered by: Latia MORALES 12 Dec 2011 1022 ------- ------- ------- ------- -- Echo CELESTINA BRADSHAW 12/11 Inpatient- Still a Patient [facility](Car diology NMCP) [facility](Business Support Inpatient Team) INPATIENT [id number] Notes Entered by: MELVI MENDOZA 12 Dec 2011 1341 ------- ------- ------- ------- -- s/p spinal fusion MELVI MENDOZA 12/11 [facility](Business Support Inpatient Team) INPATIENT [id number] ELISA WAGNER 12/12 Inpatient- Still a Patient [facility](Phy s Ther Inpatie nt Team) [facility](Business Support Inpatient Team) INPATIENT [id number] ELISA WAGNER 12/12 Inpatient- Still a Patient [facility](Phy s Ther Inpatie nt Team) [facility](Business Support Inpatient Team) INPATIENT [id number] ELISA WAGNER 12/15 Inpatient- Still a Patient [facility](Phy s Ther Inpatie nt Team) [facility](Business Support Inpatient Team) INPATIENT [id number] KALIE ALEXANDER 12/18 Inpatient- Still a Patient [facility] [place](Phy s Ther Inpatie [facility] Team) [facility](Business Support Inpatient Team) INPATIENT [id number] RAJAN RILEY 12/19 Inpatient- Still a Patient [facility](Phy s Ther Inpatie nt Team) [facility](Business Support Inpatient Team) INPATIENT [id number] GALINDO SANFORD 12/21 Inpatient- Still a Patient [facility](Phy s Ther Inpatie nt Team) [facility](OT Inpatient NMCP) INPATIENT [id number] ROMAN ZHOU 12/25 Inpatient- Still a Patient [facility](OT Inpatie nt NMCP) [facility](Nutriti on NMCP) INPATIENT [id number] Notes Entered by: NEHAL SCHAFFER 27 Dec 2011 1402 ------- ------- ------- ------- -- 3D - Follow- up/caroline low problem s, poor appetit e/diet texture change/ supplem ents CRISTELA GRAYSON 12/26 [facility](Ortho Spine NMCP) TELE CONSULT [id number] Notes Entered by: NIEVES PARTIDA 02 Jan 2012 1256 ------- ------- ------- ------- -- Kenyatta/NIEVES DUKES 01/01 [facility]) [facility](Ortho Spine NMCP) TELE CONSULT [id number] Notes Entered by: NIEVES PARTIDA 07 Jan 2012 1344 ------- ------- ------- ------- -- Kenyatta/NIEVES DUKES 01/06 [facility]) [facility](Ortho Spine NMCP) INPATIENT [id number] CONNOR REZA 01/07 Inpatient- Still a Patient [facility] [place] Spine [facility]) [facility] [place] [facility](Pulmona ry [facility]) OUTPATIENT [id number] g/u MARIO GRIMM 01/07 Released w/o Limitations [facility] [place]ary [facility]) [facility] [place] [facility](Ortho Spine [facility] OUTPATIENT [id number] RESCHED BURTON SHINE 02/04 Released w/o Limitations [facility](O[facility] Spine NM[facility]) [facility] [place] [facility](Ortho Spine [facility]) TELE CONSULT [id number] Notes Entered by: NIEVES PARTIDA 24 Feb 2012 1424 ------- ------- ------- ------- -- F/U NIEVES PARTIDA 02/23 [facility] [place] [facility](Ortho Spine [facility]) OUTPATIENT [id number] f/u after BURTON Juarez 03/02 Released w/o Limitations [facility](Ort ho Spine [facility]CP) [facility] [place] [facility](Ortho Spine [facility]) TELE CONSULT [id number] Notes Entered by: NIEVES PARTIDA 05 Mar 2012 1508 ------- ------- ------- ------- -- F/NIEVES DUKES 03/05 [facility](Ort [facility] Spine NM[facility]) [facility] [place] [facility](Ortho Spine [facility]) TELE CONSULT [id number] Notes Entered by: NIEVES PARTIDA 09 Mar 2012 1120 ------- ------- ------- ------- -- F/NIEVES DUKES 03/09 [facility]) [facility] [place](Pulmona ry [facility]) TELE CONSULT [id number] Notes Entered by: KYMBERLY LUNA 11 Mar 2012 1228 ------- ------- ------- ------- -- P[ryan webster MARIO GRIMM Latia 03/11 [facility](Pul monary NMCP) [facility](Periphe ral Vascular NMCP) OUTPATIENT [id number] spine approac heather TAMIR HUTCHINSON 03/12 Released w/o Limitations [facility](Per ipheral Vascula r NMCP) [facility]([place]a ry Sleep Lab NMCP) OUTPATIENT [id number] PRE-OP Base MARIO GRIMM Latia 03/18 Released w/o Limitations [facility](Pul monary Sleep Lab NMCP) [facility](Ortho Spine NMCP) OUTPATIENT [id number] Notes Entered by: SARY JUAREZ SA 18 Mar 2012 0818 ------- ------- ------- ------- -- preop appt BURTON SANABRIA 03/18 Released w/o Limitations [facility](Ort ho Spine NMCP) [facility] ADMISSION RESULTING FROM APV, DIRECT TO [facility] [id number] BURTON SANABRIA 03/20 DISCHARGED HOME [facility](Immuniz ation NMCP) INPATIENT [id number] Notes Entered by: LEOLA BROWNE 21 Mar 2012 0859 ------- ------- ------- ------- -- IN PT RECORD REVIEW. SAÚL NIELSEN 03/21 Inpatient- Still a Patient [facility](Imm unizati on NMCP) [facility](Business Support Inpatient Team) INPATIENT [id number] MELVI MENDOZA 03/21 [facility]- [facility]Phy [facility] Ther [facility]patie [facility] Team) [facility](Ortho Spine NMCP) TELE CONSULT [id number] Notes Entered by: NIEVES PARTIDA 26 Mar 2012 1551 ------- ------- ------- ------- -- F/U post-op assessm ent NIEVES PARTIDA 03/26 [facility] [place] Spine [facility]) [facility] [place] [facility](Ortho Spine NM[facility]) OUTPATIENT [id number] karey guzman pt., JASON D 04/01 [facility]ased w/o Limitations [facility] [place]([facility] Spine [facility]) [facility] [place] [facility](Ortho Spine NM[facility]) TELE CONSULT [id number] Notes Entered by: NIEVES PARTIDA 02 Apr 2012 1356 ------- ------- ------- ------- -- Appt and lab NIEVES PARTIDA 04/02 [facility] [place] [facility](Ortho Spine NM[facility]) TELE CONSULT [id number] Notes Entered by: NIEVES PARTIDA 16 Apr 2012 1227 ------- ------- ------- ------- -- F/U NIEVES PARTIDA 04/16 [facility]) [facility] [place] [facility](Ortho Spine NM[facility]) OUTPATIENT [id number] f/u 6 wks CONNOR Sorenson 05/01 Released w/o Limitations [facility] [place]([facility] Spine [facility]) [facility] [place] [facility]([place] Sleep Clinic NMCP) TELE CONSULT [id number] Notes Entered by: HELENA FOWLER 06 May 2012 1618 ------- ------- ------- ------- -- Marine perez and you indicat ed to change MARIO Scnalon 05/06 [facility] [place] [facility](Pul [facility]ary [facility] Clinic NM[facility]) [facility] [place] [facility](Pulmona ry NM[facility]) OUTPATIENT [id number] f/u MARIO GRIMM Latia 06/17 Released w/o Limitations [facility](Pul monary NMCP) [facility](Ortho Spine NMCP) OUTPATIENT [id number] f/u post op dec. t10 to s1 CONNOR REZA 06/22 Released w/o Limitations [facility](Ort ho Spine NMCP) [facility] [employer]) TELE CONSULT [id number] Notes Entered by: MIKALA HAGER 25 Jun 2012 1129 ------- ------- ------- ------- -- refill and labs BA RADFORD 06/25 [facility] [employer]) [facility](Ortho Spine NMCP) TELE CONSULT [id number] Notes Entered by: NIEVES PARTIDA 06 Jul 2012 1153 ------- ------- ------- ------- -- F/U NIEVES PARTIDA 07/06 [facility](Ort ho Spine NMCP) [facility](Ortho Spine NMCP) TELE CONSULT [id number] Notes Entered by: NIEVES PARTIDA 09 Jul 2012 1513 ------- ------- ------- ------- -- F/U NIEVES PARTIDA 07/09 [facility](Ort ho Spine NMCP) [facility] [employer]) OUTPATIENT [id number] f/u on back SAYELENA COOPER E 07/09 Released w/o Limitations [facility] [employer]) [facility](Ortho Spine NMCP) OUTPATIENT [id number] increas e lumbar with right leg pain CONNOR REZA 07/13 Released w/o Limitations [facility](Ort ho Spine NMCP) [facility](Acute Care Ortho NMCP) TELE CONSULT [id number] Notes Entered by: NIEVES PARTIDA 30 Jul 2012 1437 ------- ------- ------- ------- -- F/U NIEVES PARTIDA 07/30 [facility](Acu te Care Ortho NMCP) [facility](Ortho Spine NMCP) OUTPATIENT [id number] pop 4mth follow up [facility] Released w/o Limitations [facility](Ort ho Spine NMCP) [facility](Ortho Spine NMCP) OUTPATIENT [id number] f/u [facility] Released w/o Limitations [facility](Ort ho Spine NMCP) [facility](Ortho Spine NMCP) TELE CONSULT [id number] Notes Entered by: NIEVES PARTIDA 31 Dec 2012 1440 ------- ------- ------- ------- -- F/U re: CT/NIEVES Thomas 12/31 [facility](Ort ho Spine NMCP) [facility] [employer]) TELE CONSULT [id number] Notes Entered by: TAMIA COUGHLIN 21 Apr 2013 1048 ------- ------- ------- ------- -- MEDICAT ION FARZANEH RODRIGUEZCATHY SALDAÑATE 04/21 [facility]([employer]) Procedures Combined list of: 1) Procedures from Department of Veterans Affairs facilities going back up to thelast 18 months, not all VA non-surgical procedures are included; 2) All procedures from the Department of Defense facilities. Procedure Procedure Type Code Date Perfomer Comments Sour e Polysomnography W/ 4+ Add'l Sleep Sharath & Initiation Of CPAP/Bilev Vent [address] [facility] Postoperative Visit, Without Charge Postoperative Visit, Without Charge [address] [facility] Physical Therapy Gait Training Physical Therapy Gait Training [address] [facility] Physical Therapy Service Evaluation Physical Therapy Service Evaluation [address] [facility] Postoperative Visit, Without Charge Postoperative Visit, Without Charge [address] [facility] Medical Nutrition Therapy Re-a e ment And Intervention Each 15 Minutes Medical Nutrition Therapy Re-assessment And Intervention Each 15 Minutes 527[address] [facility] Patient Training And Self-Care Skills Patient Training And Self-Care Skills 59390 [address] [facility] Occupational Therapy Evaluation Occupational Therapy Evaluation [address] [facility] Physical Therapy Gait Training Physical Therapy Gait Training 184[address] [facility] Physical Therapy Gait Training Physical Therapy Gait Training 69523 2011 RAJAN RILEY 60 ft, RW, CGA [facility] PT A e ment Kinetic Training PT Assessment Kinetic Training 25246 2011 KALIE ALEXANDER Transfer training [facility] Physical Therapy Service Evaluation Physical Therapy Service Evaluation [address] [facility] Medical Nutrition Therapy Initial A e ment And Intervention Each 15 Minutes Medical Nutrition Therapy Initial Assessment And Intervention Each 15 Minutes 57[address] [facility] Physical Therapy Gait Training Physical Therapy Gait Training 78761 2011 BERNARD, ELISA Ambulation training. [facility] Hemodynamics Left Ventricular Ejection Fraction > or = 40% Hemodynamics Left Ventricular Ejection Fraction > or = 40% 3022F [address] [facility] Echo Congenital Cardiac Defects Transthoracic W/ M-Mode, Spectral, & Color Flow Echo Congenital Cardiac Defects Transthoracic W/ M-Mode, Spectral, & Color Flow [address] [facility] Physical Therapy Gait Training Physical Therapy Gait Training 54542 2011 BERNARD, ELISA Ambulation training. [facility] Physical Therapy: ___ Se ion Segments, 15 Minutes Each Physical Therapy: ___ Session Segments, 15 Minutes Each 47043 2011 ELISA WAGNER Ambulation training. [facility] Physical Therapy Gait Training Physical Therapy Gait Training [address] [facility] Physical Therapy Service Evaluation Physical Therapy Service Evaluation [address] [facility] ECG 12-Lead With Interpretation And Report ECG 12-Lead With Interpretation And Report [address] [facility] Physician Supervised Specimen Handling / Transfer: Office To Lab Physician Supervised Specimen Handling / Transfer: Office To Lab [address] [facility] Biopsy Vulvar Biopsy Vulvar [address] [facility] All pota ium hydroxide (nava) preparations [address] [facility] Wet angelica, including preparations of vaginal, cervical or skin specimens [address] [facility] Screening papanicolaou smear; obtaining, preparing and conveyance of cervical or vaginal smear to laboratory 2011 RAJNI BERGERON Cervical or vaginal cancer screening; pelvic and clinical breast examination 2011 RAJNI BERGERON Bone Density Studies DXA Axial Skeleton Bone Density Studies DXA Axial Skeleton [address] [facility] Spirometry Spirometry [address] [facility] Total Body Plethysmography Total Body Plethysmography [address] [facility] Pulmonary Function Carbon Monoxide Diffusion % (DLCO) Pulmonary Function Carbon Monoxide Diffusion % (DLCO) [address] [facility] Postoperative Visit, Without Charge Postoperative Visit, Without Charge [address] [facility] Pulse Oximetry Pulse Oximetry 20458 2009 MARIO GRIMM 100%-RA. - Normal range [facility] Spirometry Spirometry [address] [facility] Pulmonary Function Carbon Monoxide Diffusion % (DLCO) Pulmonary Function Carbon Monoxide Diffusion % (DLCO) [address] [facility] Screening papanicolaou smear; obtaining, preparing and conveyance of cervical or vaginal smear to laboratory [address] [facility] Medical Nutrition Therapy Initial A e ment And Intervention Each 15 Minutes Medical Nutrition Therapy Initial Assessment And Intervention Each 15 Minutes [address] [facility] Cervical Pap Smear Cervical Pap Smear [address] [facility] ECG Monitoring Superimposition Scanning Analysis And Report [address] [facility] ECG Monitoring Superimposition Scanning Recording Only [address] [facility] POSTOPERATIVE FOLLOW-UP VISIT, NORMALLY INCLUDED IN THE SURGICAL PACKAGE, INDICATE THAT EVALUATION & MANAGEMENT SERVICE WAS PERFORMED DURING A POSTOPERATIVE PERIOD REASON RELATED ORIGINAL PROCEDURE 2011 [facility] REVISION OR REPLACEMENT OF ARTIFICIAL SPINAL DISC PROSTHESIS, LUMBOSACRAL 2011 [facility] THERAPEUTIC PROCEDURE, 1 OR MORE AREAS, EACH 15 MINUTES; GAIT TRAINING (INCLUDES STAIR CLIMBING) 2011 [facility] ARTHRODESIS, ANTERIOR INTERBODY TECHNIQUE, INCLUDING MINIMAL DISCECTOMY TO PREPARE INTERSPACE (OTHER THAN FOR DECOMPRESSION); LUMBAR 2011 [facility] REMOVAL OF POSTERIOR SEGMENTAL INSTRUMENTATION 2011 [facility] POLYSOMNOGRAPHY;AGE 8 YEARS/OLDER,SLEEP STAGING W 4/MORE ADDITIONAL PARAMETERS OF SLEEP,W INITIATION OF CONTINUOUS POSITIVE AIRWAY PRESSURE THERAPY/BILEVEL VENTILATION,ATTENDED BY A TECHNOLOGIST 2011 [facility] POSTOPERATIVE FOLLOW-UP VISIT, NORMALLY INCLUDED IN THE SURGICAL PACKAGE, INDICATE THAT EVALUATION & MANAGEMENT SERVICE WAS PERFORMED DURING A POSTOPERATIVE PERIOD REASON RELATED ORIGINAL PROCEDURE 2011 [facility] SPINAL FUSION, NOT OTHERWISE SPECIFIED 2011 [facility] FUSION OR REFUSION OF 4-[address] [facility] INSERTION OF INTERBODY SPINAL FUSION DEVICE 2011 [facility] CLOSED [ENDOSCOPIC] BIOPSY OF BRONCHUS 2011 [facility] POSTOPERATIVE FOLLOW-UP VISIT, NORMALLY INCLUDED IN THE SURGICAL PACKAGE, INDICATE THAT EVALUATION & MANAGEMENT SERVICE WAS PERFORMED DURING A POSTOPERATIVE PERIOD REASON RELATED ORIGINAL PROCEDURE 2011 [facility] MEDICAL NUTRITION THERAPY; RE-ASSESSMENT AND INTERVENTION, INDIVIDUAL, PEBY-MC-[facility]VS WITH THE PATIENT, EACH [address] [facility] POSTOPERATIVE FOLLOW-UP VISIT, NORMALLY INCLUDED IN THE SURGICAL PACKAGE, INDICATE THAT EVALUATION & MANAGEMENT SERVICE WAS PERFORMED DURING A POSTOPERATIVE PERIOD REASON RELATED ORIGINAL PROCEDURE 2011 [facility] SELF-CARE/HOME MANAGMENT TRAIN (EG,ACT OF DAILY LIVING (ADL) &COMPENSAT TRAIN,MEAL PREPARATION,SAFETY PROCS,AND INSTRUCT IN USE OF ASST TECHNOLOGY DEV/ADPT EQUIP) DIR ONE-ON-ONE CONT,EA 15 MINUTES 2011 [facility] POSTOPERATIVE FOLLOW-UP VISIT, NORMALLY INCLUDED IN THE SURGICAL PACKAGE, INDICATE THAT EVALUATION & MANAGEMENT SERVICE WAS PERFORMED DURING A POSTOPERATIVE PERIOD REASON RELATED ORIGINAL PROCEDURE 2011 [facility] POSTOPERATIVE FOLLOW-UP VISIT, NORMALLY INCLUDED IN THE SURGICAL PACKAGE, INDICATE THAT EVALUATION & MANAGEMENT SERVICE WAS PERFORMED DURING A POSTOPERATIVE PERIOD REASON RELATED ORIGINAL PROCEDURE 2011 [facility] POSTOPERATIVE FOLLOW-UP VISIT, NORMALLY INCLUDED IN THE SURGICAL PACKAGE, INDICATE THAT EVALUATION & MANAGEMENT SERVICE WAS PERFORMED DURING A POSTOPERATIVE PERIOD REASON RELATED ORIGINAL PROCEDURE 2011 [facility] POSTOPERATIVE FOLLOW-UP VISIT, NORMALLY INCLUDED IN THE SURGICAL PACKAGE, INDICATE THAT EVALUATION & MANAGEMENT SERVICE WAS PERFORMED DURING A POSTOPERATIVE PERIOD REASON RELATED ORIGINAL PROCEDURE 2011 [facility] THERAPEUTIC PROCEDURE, 1 OR MORE AREAS, EACH 15 MINUTES; GAIT TRAINING (INCLUDES STAIR CLIMBING) 2011 [facility] THERAPEUTIC PROCEDURE, 1 OR MORE AREAS, EACH 15 MINUTES; GAIT TRAINING (INCLUDES STAIR CLIMBING) 2011 [facility] POSTOPERATIVE FOLLOW-UP VISIT, NORMALLY INCLUDED IN THE SURGICAL PACKAGE, INDICATE THAT EVALUATION & MANAGEMENT SERVICE WAS PERFORMED DURING A POSTOPERATIVE PERIOD REASON RELATED ORIGINAL PROCEDURE 2011 [facility] THERAPEUTIC ACTIVITIES, DIRECT (ONE-ON-ONE) PATIENT CONTACT (USE OF DYNAMIC ACTIVITIES TO IMPROVE FUNCTIONAL PERFORMANCE), EACH 15 MINUTES 2011 [facility] POSTOPERATIVE FOLLOW-UP VISIT, NORMALLY INCLUDED IN THE SURGICAL PACKAGE, INDICATE THAT EVALUATION & MANAGEMENT SERVICE WAS PERFORMED DURING A POSTOPERATIVE PERIOD REASON RELATED ORIGINAL PROCEDURE [address] [facility] AUTOGRAFT FOR SPINE SURGERY ONLY (INCLUDES HARVESTING THE GRAFT);LOCAL (EG,RIBS,SPINOUS PROCESS,OR LAMINAR FRAGMENTS) OBTAINED FROM SAME INCIS (LIST SEPARATELY IN ADDITION TO CODE FOR PRIMARY PROC) 2011 [facility] THERAPEUTIC PROCEDURE, 1 OR MORE AREAS, EACH 15 MINUTES; GAIT TRAINING (INCLUDES STAIR CLIMBING) 2011 [facility]D POSTOPERATIVE FOLLOW-UP VISIT, NORMALLY INCLUDED IN THE SURGICAL PACKAGE, INDICATE THAT EVALUATION & MANAGEMENT SERVICE WAS PERFORMED DURING A POSTOPERATIVE PERIOD REASON RELATED ORIGINAL PROCEDURE 2011 [facility] POSTOPERATIVE FOLLOW-UP VISIT, NORMALLY INCLUDED IN THE SURGICAL PACKAGE, INDICATE THAT EVALUATION & MANAGEMENT SERVICE WAS PERFORMED DURING A POSTOPERATIVE PERIOD REASON RELATED ORIGINAL PROCEDURE 2011 [facility] THERAPEUTIC PROCEDURE, 1 OR MORE AREAS, EACH 15 MINUTES; GAIT TRAINING (INCLUDES STAIR CLIMBING) 2011 [facility]D THERAPEUTIC PROCEDURE, 1 OR MORE AREAS, EACH 15 MINUTES; THERAPEUTIC EXERCISES TO DEVELOP STRENGTH AND ENDURANCE, RANGE OF MOTION AND FLEXIBILITY 2011 [facility]D POSTOPERATIVE FOLLOW-UP VISIT, NORMALLY INCLUDED IN THE SURGICAL PACKAGE, INDICATE THAT EVALUATION & MANAGEMENT SERVICE WAS PERFORMED DURING A POSTOPERATIVE PERIOD REASON RELATED ORIGINAL PROCEDURE 2011 [facility] THERAPEUTIC PROCEDURE, 1 OR MORE AREAS, EACH 15 MINUTES; GAIT TRAINING (INCLUDES STAIR CLIMBING) 2011 [facility] LEFT VENTRICULAR EJECTION FRACTION (LVEF) GREATER THAN OR EQUAL TO 40% OR DOCUMENTATION NORMAL OR MILDLY DEPRESSED LEFT VENTRICULAR SYSTOLIC FUNCTION (CAD, HF) 2011 [facility]D POSTOPERATIVE FOLLOW-UP VISIT, NORMALLY INCLUDED IN THE SURGICAL PACKAGE, INDICATE THAT EVALUATION & MANAGEMENT SERVICE WAS PERFORMED DURING A POSTOPERATIVE PERIOD REASON RELATED ORIGINAL PROCEDURE 2011 [facility]D POSTOPERATIVE FOLLOW-UP VISIT, NORMALLY INCLUDED IN THE SURGICAL PACKAGE, INDICATE THAT EVALUATION & MANAGEMENT SERVICE WAS PERFORMED DURING A POSTOPERATIVE PERIOD REASON RELATED ORIGINAL PROCEDURE 2011 [facility] MEDICAL NUTRITION THERAPY; INITIAL ASSESSMENT AND INTERVENTION, INDIVIDUAL, [id number] WITH THE PATIENT, EACH [address] [facility] REVISION OR REMOVAL OF IMPLANTED SPINAL NEUROSTIMULATOR PULSE GENERATOR OR GELATIN MAKER UTILITY, WITH DETACHABLE CONNECTION TO ELECTRODE ARRAY 2011 [facility] ELECTROCARDIOGRAM, ROUTINE ECG WITH AT LEAST 12 LEADS; WITH INTERPRETATION AND REPORT 2011 [facility] HANDLING AND/OR CONVEYANCE OF SPECIMEN FOR TRANSFER FROM THE OFFICE TO A LABORATORY 2011 [facility] ALL POTASSIUM HYDROXIDE (NAVA) PREPARATIONS 2011 [facility] DUAL-ENERGY X-RAY ABSORPTIOMETRY (DXA), BONE DENSITY STUDY, 1 OR MORE SITES; AXIAL SKELETON (EG, HIPS, PELVIS, SPINE) 2011 [facility] SPIROMETRY, INCLUDING GRAPHIC RECORD, TOTAL AND TIMED VITAL CAPACITY, EXPIRATORY FLOW RATE MEASUREMENT(S), WITH OR WITHOUT MAXIMAL VOLUNTARY VENTILATION 2010 [facility]D POSTOPERATIVE FOLLOW-UP VISIT, NORMALLY INCLUDED IN THE SURGICAL PACKAGE, INDICATE THAT EVALUATION & MANAGEMENT SERVICE WAS PERFORMED DURING A POSTOPERATIVE PERIOD REASON RELATED ORIGINAL PROCEDURE 2010 [facility] UNLISTED SPECIAL SERVICE, PROCEDURE OR REPORT 2010 [facility] NONINVASIVE EAR OR PULSE OXIMETRY FOR OXYGEN SATURATION; SINGLE DETERMINATION 2009 [facility] SPIROMETRY, INCLUDING GRAPHIC RECORD, TOTAL AND TIMED VITAL CAPACITY, EXPIRATORY FLOW RATE MEASUREMENT(S), WITH OR WITHOUT MAXIMAL VOLUNTARY VENTILATION 2009 [facility] SCREENING PAPANICOLAOU SMEAR; OBTAINING, PREPARING AND CONVEYANCE OF CERVICAL OR VAGINAL SMEAR TO LABORATORY 2008 [facility] INJECTION OF STEROID 2007 [facility] RESPIRATORY MEDICATION ADMINISTERED BY NEBULIZER 2007 [facility] MEDICAL NUTRITION THERAPY; INITIAL ASSESSMENT AND INTERVENTION, INDIVIDUAL, [id number] WITH THE PATIENT, EACH 15 MINUTES 2007 [facility] INJECTION, LEVOFLOXACIN, [address] [facility] DUPLEX SCAN OF EXTREMITY VEINS INCLUDING RESPONSES TO COMPRESSION AND OTHER MANEUVERS; COMPLETE BILATERAL STUDY 2006 [facility] NONINVASIVE EAR OR PULSE OXIMETRY FOR OXYGEN SATURATION; SINGLE DETERMINATION 2005 [facility] PRESSURIZED/NONPRESS INHAL TREAT FOR AC AIRWAY OBSTRUCT,THERAP PURPOSE &/FOR DIAG PURP SUCH SPUTUM INDUCTION W AN AEROSOL GEN,NEBULIZER,METER DOSE INHALER/INTERMIT POSIT PRESS BREATHING (IPPB) DEV 2004 [facility] UNLISTED SPECIAL SERVICE, PROCEDURE OR REPORT 2004 [facility] NONINVASIVE EAR OR PULSE OXIMETRY FOR OXYGEN SATURATION; SINGLE DETERMINATION 2004 [facility] CYTOPATHOLOGY, SMEARS, CERVICAL OR VAGINAL, UP TO THREE SMEARS; SCREENING BY PULL TAB DEALER UNDER PHYSICIAN SUPERVISION 2004 [facility] EXTERNAL ELECTROCARDIOGRAPHIC RECORDING UP TO 48 HOURS BY CONTINUOUS RHYTHM RECORDING AND STORAGE; SCANNING ANALYSIS WITH REPORT 2003 [facility] NONINVASIVE EAR OR PULSE OXIMETRY FOR OXYGEN SATURATION; SINGLE DETERMINATION 2003 [facility] SEDATION WITH OR WITHOUT ANALGESIA (CONSCIOUS SEDATION); INTRAVENOUS, INTRAMUSCULAR OR INHALATION 2003 [facility] SEDATION WITH OR WITHOUT ANALGESIA (CONSCIOUS SEDATION); INTRAVENOUS, INTRAMUSCULAR OR INHALATION 2003 [facility] MEASUREMENT OF POST-VOIDING RESIDUAL URINE AND/OR BLADDER CAPACITY BY ULTRASOUND, NON-IMAGING 2003 [facility] ELECTROCARDIOGRAM, ROUTINE ECG WITH AT LEAST 12 LEADS; WITH INTERPRETATION AND REPORT 2003 [facility] NONINVASIVE EAR OR PULSE OXIMETRY FOR OXYGEN SATURATION; SINGLE DETERMINATION 2003 [facility] NONINVASIVE EAR OR PULSE OXIMETRY FOR OXYGEN SATURATION; SINGLE DETERMINATION 2002 [facility] INFECTIOUS AGENT ANTIGEN DETECTION BY IMMUNOASSAY WITH DIRECT OPTICAL (IE, VISUAL) OBSERVATION; STREPTOCOCCUS, GROUP A 2002 [facility] SPIROMETRY, INCLUDING GRAPHIC RECORD, TOTAL AND TIMED VITAL CAPACITY, EXPIRATORY FLOW RATE MEASUREMENT(S), WITH OR WITHOUT MAXIMAL VOLUNTARY VENTILATION 2001 [facility] ENDOMETRIAL SAMPLING (BIOPSY) WITH OR WITHOUT ENDOCERVICAL SAMPLING (BIOPSY), WITHOUT CERVICAL DILATION, ANY METHOD (SEPARATE PROCEDURE) 2001 [facility] GONADOTROPIN, CHORIONIC (HCG); QUALITATIVE 2001 [facility] REOPENING OF LAMINECTOMY SITE 2001 [facility] SPIROMETRY, INCLUDING GRAPHIC RECORD, TOTAL AND TIMED VITAL CAPACITY, EXPIRATORY FLOW RATE MEASUREMENT(S), WITH OR WITHOUT MAXIMAL VOLUNTARY VENTILATION 2001 [facility] EXCISION OF INTERVERTEBRAL DISC 2001 [facility] SMEAR, PRIMARY SOURCE WITH INTERPRETATION; WET MOUNT FOR INFECTIOUS AGENTS (EG, SALINE, SABRINA INK, NAVA PREPS) 2001 [facility] BLOOD,OCCULT,BY PEROXIDASE ACTIV (EG,GUAIAC),QUAL;FECES, CONSECUTIVE COLLECTED SPECIMENS W SING DETERMIN,FOR COLORECTAL NEOPLAS SCREEN (IE,PAT PROVIDE 3 CARDS/SING TRIPLE CARD FOR CONSECUTIVE COLLECT) 2001 [facility] PNEUMOCOCCAL POLYSACCHARIDE VACCINE, 23-VALENT (PPSV23), ADULT OR IMMUNOSUPPRESSED PATIENT DOSAGE, WHEN ADMINISTERED TO INDIVIDUALS 2 YEARS OR OLDER, FOR SUBCUTANEOUS OR INTRAMUSCULAR USE 2001 [facility] DUAL ENERGY X-RAY ABSORPTIOMETRY (DXA), BONE DENSITY STUDY, ONE OR MORE SITES; AXIAL SKELETON (EG, HIPS, PELVIS, SPINE) 2000 [facility] DOPPLER ECHOCARDIOGRAPHY COLOR FLOW VELOCITY MAPPING (LIST SEPARATELY IN ADDITION TO CODES FOR ECHOCARDIOGRAPHY) 2000 [facility] NONINVASIVE EAR OR PULSE OXIMETRY FOR OXYGEN SATURATION; SINGLE DETERMINATION 2000 [facility] SPIROMETRY, INCLUDING GRAPHIC RECORD, TOTAL AND TIMED VITAL CAPACITY, EXPIRATORY FLOW RATE MEASUREMENT(S), WITH OR WITHOUT MAXIMAL VOLUNTARY VENTILATION 2000 [facility] BRONCHODILATION RESPONSIVENESS, [place] [id number], PRE- AND POST-BRONCHODILATOR ADMINISTRATION 2000 [facility] DEMONSTRATION AND/OR EVALUATION OF PATIENT UTILIZATION OF AN AEROSOL GENERATOR, NEBULIZER, METERED DOSE INHALER OR IPPB DEVICE 2000 [facility] DEMONSTRATION AND/OR EVALUATION OF PATIENT UTILIZATION OF AN AEROSOL GENERATOR, NEBULIZER, METERED DOSE INHALER OR IPPB DEVICE 2000 [facility] EXCISION OF INTERVERTEBRAL DISC 1998 [facility] OTHER CERVICAL FUSION, ANTERIOR TECHNIQUE 1998 DoD Social History Combined list of available smoking, tobacco, and other social history from [facility] of Defense and Veterans Affairs facilities. Social History Type Response Date Comment Sour e This section is an empty social history section. [facility]D
== END 2023-09-10 20:13 | disposition home or self-care (01) ==
LOC: SLEEP 20:13
PROVIDERS: PCP Surgery; Visit Provider Internal Medicine
DX: G47.33 Obstructive sleep apnea (adult) (pediatric) (principal)
CPT/HCPCS: 95811